=== PATIENT | male | born 1945 | race Caucasian/White ===

== ENCOUNTER → 2019-03-13 06:55 | Outpatient (CLI) | payer OTHER, SELFPAY ==
--- NOTE | 2019-03-13 | DI.CT.S_ITS ---
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 Additional oblique axial 3.0 mm sections acquired through the pharynx. 3 mm thick coronal and sagittal reformats were generated. For radiation dose reduction, the following was used: automated exposure control. COMPARISON: Correlation is made with examinations performed at [facility] 08/04/18 (CT and MRI), and PET/CT 06/01/18, and [place] CT 06/03/18. FINDINGS: Image quality: Limited by streak artifact from dental amalgam. Lymph nodes: No enlarged lymph nodes seen throughout the neck. Vessels: Visualized vasculature appears patent. Neck spaces: Postoperative change of the left submandibular region can be seen, with numerous clips and fat packing. There is asymmetry seen involving the retromolar trigones, with abnormal enhancements loss soft tissue seen on the left side, which is consistent with continued perineural invasion. Abnormal fullness is seen involving the left Meckel's cave compared to the right, although this is subtle. The oropharynx, nasopharynx, and pharynx demonstrate no mucosal lesions. The vocal cords, false vocal cords, pyriform sinuses, epiglottis, vallecula, and tongue base all appear normal. Glands: The parotid and submandibular glands appear normal. Thyroid gland again demonstrates a left-sided low density lesion that measures 2.5 cm. Miscellaneous: Visualized brain and orbits appear normal. Lung apices appear clear. Superficial soft tissues appear normal. Bones: No suspicious bony lesions. Visualized sinuses and mastoids appear unremarkable. Relatively prominent lower cervical spine degenerative changes are seen. IMPRESSION: Postoperative change of the left neck seen. There is again seen perineural spread seen on the left, with abnormal fullness and enhancement within the left retromolar trigone. There is also asymmetric facet enhancement seen within the left Meckel's cave compared to the right, although this is more subtle. This patient's perineural invasion has been better seen on prior scans by MRI than by CT. If clinically appropriate, please consider a followup MRI for better delineation. Incidental note is made of: Lower cervical spine degenerative change 2.5 cm thyroid lesion, as previously described. Dictated by: Zeb Rosado M.D. on 03/13/2019 at 8:30 Transcribed by: PAWAN on 03/13/2019 at 9:02 Approved by: Zeb Rsoado M.D. on 03/13/2019 at 9:19
[2019-03-13 07:30] LABS: Alanine Aminotransferase 36 IU/L (<50); Albumin 4.3 g/dL (3.5-5.0); Albumin Globulin Ratio 1.4 (1.0-2.8); Alkaline Phosphatase 69 U/L (38-126); Aspartate Aminotransferase 34 IU/L (17-59); Bilirubin Total 0.9 mg/dL (0.2-1.3); Blood Urea Nitrogen 28 mg/dL (9-20); Calcium 9.8 mg/dL (8.4-10.2); Carbon Dioxide 31 mmol/L (22-32); Chloride 101 mmol/L (98-107); Estimated Glomerular Filt Rate > 60.0 mL/min (>60); Glucose 104 mg/dL (80-110); HEMOLYSIS 31 (0-50); Potassium 5.1 mmol/L (3.4-5.1); Sodium 139 mmol/L (137-145); Total Protein 7.3 g/dL (6.3-8.2)
== END ==
PROVIDERS: Visit Provider Radiology Radiation Oncology
DX: C14.8 Malignant neoplasm of overlapping sites of lip, oral cavity and pharynx (principal); M47.812 Spondylosis without myelopathy or radiculopathy, cervical region; E07.9 Disorder of thyroid, unspecified
CPT/HCPCS: 36415; 70491; 80053; Q9967

== ENCOUNTER → 2020-04-05 09:52 | Outpatient (CLI) | payer MEDICARE, SELFPAY ==
--- NOTE | 2020-04-05 11:12 | DI.CT.S_ITS ---
PROCEDURE: CT SOFT TISSUE NECK W CON INDICATIONS: Malignant neoplasm of mouth, unspecified TECHNIQUE: After the administration of intravenous contrast, 3.0 mm axial sections acquired from the sella to the aortic arch. Additional oblique axial 3.0 mm sections acquired through the pharynx. 3 mm thick coronal and sagittal reformats were generated. For radiation dose reduction, the following was used: automated exposure control. In this patient, 1 mm direct axial images were also reformatted. COMPARISON: [facility], CT, CT SOFT TISSUE NECK WITH CONTRAST, 08/04/2018, 13:57. Outside Facility, RG, CT THERAPY PLAN RAD ONC BODY, 12/06/2018, 8:53. Outside Film, CT, CT SOFT TISSUE NECK WITH CONTRAST, 06/07/2018, 13:20. [facility], MR, MR NECK WITH/WITHOUT CONTRAST, 08/04/2018, 14:18. Outside Facility, RG, MRI HEAD W/WO CONTRAST, 10/13/2018, 17:20. [facility], CT, CT SOFT TISSUE NECK W CON, 03/13/2019, 8:46. FINDINGS: Image quality: There is artifact associated with the metallic hardware. Lymph nodes: No enlarged lymph nodes seen throughout the neck. Vessels: Visualized vasculature appears patent. Neck spaces: Postoperative changes are seen involving the left perimandibular region and the left submandibular region. Fat packing can be seen. There is again seen obscuration of the fat within the left retromolar trigone, with soft tissue fullness. However, the abnormal soft tissue fullness appears slightly improved compared to the prior examination. Scrutiny is given to the Meckel's caves. On the current study, no definite asymmetry or abnormal enhancement can be seen. Glands: The left submandibular gland has been resected. The right submandibular gland is prominent, without a focal abnormality. The right parotid gland is unremarkable. The left parotid gland demonstrates fatty atrophy. Thyroid gland again demonstrates a nodule on the left measuring nearly 3 cm. Miscellaneous: Visualized brain and orbits appear normal. Lung apices appear clear. Superficial soft tissues appear normal. Bones: No suspicious bony lesions. Visualized sinuses and mastoids appear unremarkable. At least moderate cervical spine degenerative changes are seen. IMPRESSION: This postoperative study is similar to the prior, with abnormal soft tissue fullness seen within the left retromolar trigone. However, the soft tissue fullness appears slightly less prominent on the current study than on the prior CT. No definite abnormality is now seen of the Meckel's caves. Stable left thyroid nodule. Dictated by: Zeb Rosado M.D. on 04/05/2020 at 12:30 Approved by: Zeb Rosado M.D. on 04/05/2020 at 12:42
== END ==
PROVIDERS: PCP Family Medicine; Referring Provider Otolaryngology Plastic Surgery within the Head & Neck; Visit Provider Otolaryngology Plastic Surgery within the Head & Neck
DX: C06.9 Malignant neoplasm of mouth, unspecified (principal); E04.1 Nontoxic single thyroid nodule
CPT/HCPCS: 70491; Q9967

== ENCOUNTER → 2020-07-03 10:35 | Outpatient (CLI) | payer MEDICARE, SELFPAY ==
[2020-07-03 11:56] LABS: Alanine Aminotransferase 34 IU/L (<50); Albumin Globulin Ratio 1.3 (1.0-2.8); Alkaline Phosphatase 80 U/L (38-126); Aspartate Aminotransferase 31 IU/L (17-59); BUN Creatinine Ratio 27.2 (6-22); Bilirubin Total 0.3 mg/dL (0.2-1.3); Blood Urea Nitrogen 25 mg/dL (9-20); Calcium 9.6 mg/dL (8.4-10.2); Carbon Dioxide 28 mmol/L (22-32); Chloride 105 mmol/L (98-107); Estimated Glomerular Filt Rate > 60.0 mL/min (>60); Globulin 3.1 g/dL (1.7-4.1); Glucose 112 mg/dL (80-110); HEMOLYSIS 18 (0-50); Potassium 4.2 mmol/L (3.4-5.1); Sodium 140 mmol/L (137-145); Total Protein 7.1 g/dL (6.3-8.2)
== END ==
PROVIDERS: PCP Family Medicine; Referring Provider Otolaryngology Plastic Surgery within the Head & Neck; Visit Provider Otolaryngology Plastic Surgery within the Head & Neck
DX: C06.9 Malignant neoplasm of mouth, unspecified (principal)
CPT/HCPCS: 36415; 80053

== ENCOUNTER → 2020-07-04 11:56 | Outpatient (CLI) | payer MEDICARE, SELFPAY ==
--- NOTE | 2020-07-04 12:26 | DI.CT.S_ITS ---
PROCEDURE: CT SOFT TISSUE NECK W CON INDICATIONS: Inflammatory conditions of jaws TECHNIQUE: After the administration of intravenous contrast, 3.0 mm axial sections acquired from the sella to the aortic arch. Additional oblique axial 3.0 mm sections acquired through the pharynx. 3 mm thick coronal and sagittal reformats were generated. For radiation dose reduction, the following was used: automated exposure control. COMPARISON: [facility], CT, CT SOFT TISSUE NECK W CON, 04/05/2020, 11:14. CT dated 03/13/19, 12/06/18, 11/07/18, FINDINGS: Image quality: Excellent. Lymph nodes: No enlarged lymph nodes seen throughout the neck. Vessels: Visualized vasculature appears patent. Neck spaces: Overall, grossly stable appearance of postoperative changes involving the left perimandibular and submandibular region. Numerous surgical clips are again seen. There is unchanged appearance of associated fat packing. No discrete mass identified. Glands: The parotid and submandibular glands appear normal. Heterogeneous left thyroid nodule would be better assessed with dedicated ultrasound as clinically warranted. Miscellaneous: Visualized brain and orbits appear normal. Lung apices appear clear. Superficial soft tissues appear normal. Bones: No suspicious bony lesions. Multilevel cervical spondylosis and facet arthropathy. Straightening of the normal lordotic curvature. Visualized sinuses and mastoids appear unremarkable. IMPRESSION: Overall, grossly stable appearance since 04/05/20. No discrete or specific evidence of progressive metastatic disease. Dictated by: Ananda Davey M.D. on 07/04/2020 at 13:57 Approved by: Ananda Davey M.D. on 07/04/2020 at 14:03
== END ==
PROVIDERS: PCP Family Medicine; Referring Provider Otolaryngology Plastic Surgery within the Head & Neck; Visit Provider Otolaryngology Plastic Surgery within the Head & Neck
DX: M27.2 Inflammatory conditions of jaws (principal); G89.3 Neoplasm related pain (acute) (chronic)
CPT/HCPCS: 70491; Q9967

== ENCOUNTER → 2020-07-09 13:30 | Outpatient (CLI) | payer MEDICARE, SELFPAY ==
--- NOTE | 2020-07-09 13:32 | DI.CT.S_ITS ---
PROCEDURE: CT ANGIO ABD AORTA RUNOFF INDICATIONS: Inflammatory conditions of jaws TECHNIQUE: After the administration of intravenous contrast, 2.5 mm sections acquired from T12 to the feet, with optional delayed image acquisition from the knees to the feet. 3-dimensional maximum intensity projection (MIP) coronal and sagittal reformats, and/or 3-dimensional volume rendering reformatting was then performed. For radiation dose reduction, the following was used: automated exposure control. COMPARISON: None. FINDINGS: Image quality: Excellent. Extravascular tissues: Lung bases are not included. Heart size is not visualized. Liver is partially visualized and appears normal in size and enhancement. Gallbladder is contracted . Biliary system is non dilated. Pancreas enhances normally. Spleen is normal in size and enhancement. No adrenal nodules. Kidneys are normal in size and enhancement, without hydronephrosis. Scattered renal cortical cysts are present, and there is an adjacent posterior retroperitoneal right-sided cyst behind the IVC, measuring up to 5.1 x 3.9 cm. This measures water in internal radiodensity in likely is a neurenteric cyst. Non opacified bowel loops demonstrate normal wall thickness and enhancement. No free fluid or air. No retroperitoneal or mesenteric adenopathy. No ventral hernias. Bladder wall thickness is normal. No inguinal hernias or adenopathy. No suspicious bony lesions. No vertebral body compression fractures. Abdominal aorta: Normal in caliber, free of significant atherosclerotic soft or calcific plaque. Right lower extremity: Aortic bifurcation through the ankle region is normal without stenosis or aneurysm. Left lower extremity: Aortic bifurcation through the ankle region on the left is also normal, without stenosis or aneurysm. IMPRESSION: No significant calcific or soft plaque through the aorta and its main tributaries. The aortic bifurcation and iliac arteries extending into the common femoral arteries and below appear normal. No arterial stenosis or aneurysm is seen. Neck Incidental note is made of several renal cortical cysts bilaterally and a single ovoid presume neurenteric cyst behind the superior vena cava at the axial level of the superior mesenteric artery origin measuring up to 5.1 x 3.9 cm. Dictated by: Piyush Orourke M.D. on 07/09/2020 at 15:05 Approved by: Piyush Orourke M.D. on 07/09/2020 at 15:21
== END ==
PROVIDERS: PCP Family Medicine; Referring Provider Otolaryngology Plastic Surgery within the Head & Neck; Visit Provider Otolaryngology Plastic Surgery within the Head & Neck
DX: M27.2 Inflammatory conditions of jaws (principal); N28.1 Cyst of kidney, acquired
CPT/HCPCS: 75635

== ENCOUNTER → 2020-10-14 14:01 | Outpatient (CLI) | payer MEDICARE, SELFPAY ==
[2020-10-14 16:29] LABS: BUN Creatinine Ratio 32.9 (6-22); Blood Urea Nitrogen 28 mg/dL (9-20); Calcium 9.2 mg/dL (8.4-10.2); Carbon Dioxide 25 mmol/L (22-32); Chloride 103 mmol/L (98-107); Estimated Glomerular Filt Rate > 60.0 mL/min (>60); Glucose 125 mg/dL (80-110); HEMOLYSIS < 15 (0-50); Potassium 4.6 mmol/L (3.4-5.1); Sodium 139 mmol/L (137-145)
== END ==
PROVIDERS: PCP Family Medicine; Referring Provider Otolaryngology Plastic Surgery within the Head & Neck; Visit Provider Otolaryngology Plastic Surgery within the Head & Neck
DX: M27.2 Inflammatory conditions of jaws (principal)
CPT/HCPCS: 36415; 80048

== ENCOUNTER → 2020-10-17 10:37 | Outpatient (CLI) | payer MEDICARE, SELFPAY ==
--- NOTE | 2020-10-17 | DI.CT.S_ITS ---
PROCEDURE: CT FACIAL BONES W CON INDICATIONS: Inflammatory conditions of jaws TECHNIQUE: After the administration of intravenous contrast, 2.5 mm axial sections acquired from the mid-neck to the frontal sinuses, with coronal and sagittal reformats. For radiation dose reduction, the following was used: automated exposure control, adjustment of mA and/or kV according to patient size. COMPARISON: [facility], CT, CT SOFT TISSUE NECK W CON, 07/04/2020, 12:37. FINDINGS: Image quality: Metallic spray artifact from dental amalgam limits several images. Soft tissues: No edema, masses, or fluid collections. No enlarged lymph nodes. Prior resection of the left submandibular gland with surgical clips remains unchanged from the prior in. Denervation atrophy of the left parotid gland noted with fatty replacement, also stable. Vascular: Visualized vascular structures appear patent throughout. Bony vascular foramina and canals appear normal. Bones: Facial bones appear intact, without fractures, erosions, or destruction. Visualized portions of the skull base and auditory canals also appear normal. Sinuses: 1.8 x 0.8 cm right maxillary retention cyst noted. Ectopic right maxillary Donna cell noted. No obstruction of the OMU. IMPRESSION: 1. Prior left submandibular gland resection, surgical clips and denervation atrophy of the left parotid gland, stable from the prior 2. Incidental right maxillary sinus retention cyst Dictated by: Linus Sapp M.D. on 10/17/2020 at 12:53 Approved by: Linus Sapp M.D. on 10/17/2020 at 13:43
== END ==
PROVIDERS: PCP Family Medicine; Referring Provider Otolaryngology Plastic Surgery within the Head & Neck; Visit Provider Otolaryngology Plastic Surgery within the Head & Neck
DX: J34.1 Cyst and mucocele of nose and nasal sinus (principal); M27.2 Inflammatory conditions of jaws
CPT/HCPCS: 70487; Q9967

== ENCOUNTER → 2020-12-16 09:00 | Outpatient (CLI) | payer MEDICARE, SELFPAY ==
[2020-12-16 11:13] LABS: COVID-19 CEPHEID PCR (VTM/NP) Negative (Negative)
== END ==
PROVIDERS: PCP Family Medicine; Visit Provider Nurse Practitioner
DX: Z01.812 Encounter for preprocedural laboratory examination (principal); Z20.822 Contact with and (suspected) exposure to COVID-19
CPT/HCPCS: C9803; U0003

== ENCOUNTER → 2024-03-02 10:28 | Outpatient (CLI) | payer MEDICARE, SELFPAY | LOC: WC 10:30 | PROVIDERS: PCP Family Medicine; Visit Provider Surgery | DX: L59.8 Other specified disorders of the skin and subcutaneous tissue related to radiation (principal); M27.2 Inflammatory conditions of jaws | CPT/HCPCS: 99203; 99212 ==

== ENCOUNTER → 2024-03-07 13:33 | Outpatient (CLI) | payer MEDICARE, SELFPAY ==
--- NOTE | 2024-03-07 13:35 | DI.RAD.S_ITS ---
PROCEDURE: XR CHEST 2V INDICATIONS: Eval for Hyperbaric Oxygen Treatment TECHNIQUE: 2 views of the chest were acquired. COMPARISON: None. FINDINGS: Heart, mediastinum and pulmonary vasculature: Heart is borderline enlarged . Tortuous thoracic aorta appreciated- The mediastinum is , otherwise, unremarkable. Pulmonary vascular is normal. Lungs: Clear Pleural spaces: Normal-no effusions or pneumothorax. Bones and soft tissues: Normal IMPRESSION: Borderline cardiomegaly. No acute disease Dictated by: Breezy Corona M.D. on 03/08/2024 at 16:14 Approved by: Breezy Corona M.D. on 03/08/2024 at 16:15
== END ==
PROVIDERS: PCP Family Medicine; Referring Provider Surgery; Visit Provider Surgery
DX: Z01.818 Encounter for other preprocedural examination (principal); M87.30 Other secondary osteonecrosis, unspecified bone
CPT/HCPCS: 71046

== ENCOUNTER → 2024-03-13 12:59 | Outpatient (CLI) | payer MEDICARE, SELFPAY | LOC: WC 13:01 | PROVIDERS: PCP Family Medicine; Visit Provider Surgery | DX: L59.8 Other specified disorders of the skin and subcutaneous tissue related to radiation (principal); M27.2 Inflammatory conditions of jaws | CPT/HCPCS: 99183; G0277 ==

== ENCOUNTER → 2024-03-14 15:24 | Outpatient (CLI) | payer MEDICARE, SELFPAY | LOC: WC 15:25 | PROVIDERS: PCP Family Medicine; Visit Provider Surgery | DX: L59.8 Other specified disorders of the skin and subcutaneous tissue related to radiation (principal); M27.2 Inflammatory conditions of jaws | CPT/HCPCS: 99183; G0277 ==

== ENCOUNTER → 2024-03-15 13:07 | Outpatient (CLI) | payer MEDICARE, SELFPAY | PROVIDERS: PCP Family Medicine; Visit Provider Surgery | DX: L59.8 Other specified disorders of the skin and subcutaneous tissue related to radiation (principal); M27.2 Inflammatory conditions of jaws | CPT/HCPCS: 99183; G0277 ==

== ENCOUNTER 2024-03-16 02:16 | Emergency (ER) | payer MEDICARE, SELFPAY ==
[2024-03-16 02:19] VITALS: PULSE 60; RESP 16; TEMP 36.9; O2SAT 97; BMI 30.4
[2024-03-16] MEDS: LIDOCAINE 2% (GLYDO) 6 ML GEL TOP (02:31)
--- NOTE | 2024-03-16 02:33 | ED.GENADULT ---
HPI - General Adult General Chief complaint: Urogenital-Male Stated complaint: BLADDER Time Seen by Provider: 03/16/24 02:19 Source: patient Mode of arrival: Ambulatory History of Present Illness HPI narrative: Patient is a 79-year-old male who is here for evaluation of lower abdominal pain and urinary retention. Patient states that over the past several days he was noticed increasing problems with urinating. He was on a medication for his prostate. He has already talked with his primary doctor. Referral has been placed for Urology. He was scheduled to see Urology in approximately 2 weeks from now. He states that over the past 24 hours he has had increasing problems with urinating and has not urinated affectively for the past 24 hours. Is now unable to urinate at all. Prior to my initial evaluation a bladder scan had been performed and a Enriquez catheter has been placed with greater than 800 cc of urine. He reports improvement of his presenting symptoms. Related Data Home Medications Medication Instructions Recorded Confirmed ASPIRIN (Aspirin Low Dose) 81 mg PO ##0 05/02/08 CALCIUM CARBONATE/VITAMIN D3 0 PO * UK DOSE/FREQUENCY ##0 05/02/08 (Oyster Shell Calcium-Vit D Tab) IBUPROFEN (Motrin / Advil) 400 mg PO PRN ##0 05/02/08 MULTIVITAMIN/MINERALS (Thera M 0 tab PO * UK DOSE/FREQUENCY ##0 05/02/08 Plus Tablet) VITAMIN C - 0 PO * UK DOSE/FREQUENCY ##0 05/02/08 (VITAMIN C) metoprolol succinate 50 mg 50 mg PO DAILY 03/16/24 03/16/24 tablet,extended release 24 hr Allergies Allergy/AdvReac Type Severity Reaction Status Date / Time No Known Drug Allergies Allergy Verified 03/16/24 02:18 Review of Systems Review of Systems Narrative: See HPI Patient History Social History Smoking Status: Former smoker Smoking Status: Former smoker Substance Use Type: does not use Exam Initial Vital Signs Initial Vital Signs: Vital Signs Temperature 98.4 F 03/16/24 02:19 Pulse Rate 60 03/16/24 02:19 Respiratory Rate 16 03/16/24 02:19 Pulse Oximetry 97 03/16/24 02:19 Oxygen Delivery Method Room Air 03/16/24 02:19 Const General: cooperative, comfortable and No ill appearing GI Inspection: normal to inspection Palpation: soft, No guarding and No tender Other: Enriquez catheter placed Skin General: no rashes or lesions noted Neuro General: patient alert, patient awake and moves all extremities Course Orders Ordered: ED Orders 03/16/24 03:07 Urine Culture Stat Urine Microscopic Stat Discontinued Medications Lidocaine HCl (Lidocaine 2% (Glydo) 6 Ml Gel) 6 ml TOP NOW ONE Stop: 03/16/24 02:28 Last Admin: 03/16/24 02:31 Dose: 6 ml Documented By: Vital Signs Vital signs: Vital Signs - 8 hr 03/16/24 02:19 Temperature 98.4 F Pulse Rate 60 Respiratory Rate 16 Pulse Oximetry 97 Oxygen Delivery Method Room Air Medical Decision Making Lab Data Labs: Urine Dip Bedside Urine Glucose Negative Bedside Urine Bilirubin - Negative Bedside Urine Ketone - Negative Urine Specific [place] 1.025 Bedside Urine Occult Blood +++ Bedside Urine pH 6.0 Bedside Urine Protein - Negative Bedside Urine Urobilinogen +/- 1mg Bedside Urine Nitrite - Negative Bedside Urine Leukocytes - Negative Esterase Point of care testing: Urine Dip Bedside Urine Glucose Negative Bedside Urine Bilirubin - Negative Bedside Urine Ketone - Negative Urine Specific [place] 1.025 Bedside Urine Occult Blood +++ Bedside Urine pH 6.0 Bedside Urine Protein - Negative Bedside Urine Urobilinogen +/- 1mg Bedside Urine Nitrite - Negative Bedside Urine Leukocytes - Negative Esterase MDM Narrative Medical decision making narrative: Urinalysis is not consistent with a urinary tract infection. He was obviously retaining urine and a Enriquez catheter has been placed. He was already on an alpha-ziggy. Will discharge patient home with instructions to contact his urologist for a follow-up. He was given care instructions and return precautions. He expressed understanding and agreement plan. Discharge Plan Departure Patient Disposition: Home Clinical Impression: Acute retention of urine Instructions: How to Care for Your Enriquez Catheter -- Male, DI for Urinary Retention in Men Activity Restrictions/Additional Instructions: Continue to take all of your medications as directed. When the office is open later today recommend that you contact the urology office for a follow-up. Return to the emergency department for new or worsening symptoms Prescriptions: No Action ASPIRIN (Aspirin Low Dose) 81 mg PO Qty: 0 CALCIUM CARBONATE/VITAMIN D3 (Oyster Shell Calcium-Vit D Tab) 0 PO * UK DOSE/FREQUENCY Qty: 0 IBUPROFEN (Motrin / Advil) 400 mg PO PRN Qty: 0 MULTIVITAMIN/MINERALS (Thera M Plus Tablet) 0 tab PO * DOSE/FREQUENCY Qty: 0 VITAMIN C - (VITAMIN C) 0 PO * DOSE/FREQUENCY Qty: 0 metoprolol succinate 50 mg tablet extended release 24 hr 50 mg PO DAILY Patient Comments: TAKE ONE TABLET BY MOUTH ONE TIME DAILY Referrals: Shaun Martinez MD [Primary Care Provider] - Stand Alone Forms: Patient Portal/API/Survey
[2024-03-16 03:25] LABS: Bacteria Urine None Seen; Culture Indicated Urine Cult Not Indicated; RBC Urine 10-30/HPF (0-5/HPF); Squamous Epithelial Cell Urine None Seen (0-5/HPF); Urine Volume 10mL (spun); WBC Urine None Seen (0-5/HPF)
[2024-03-16 03:29] VITALS: BP 156/78; PULSE 74; RESP 16; O2SAT 95
== END 2024-03-16 03:30 | disposition home or self-care (01) ==
PROVIDERS: Emergency Provider Emergency Medicine; PCP Family Medicine
DX: R33.8 Other retention of urine (principal); R10.30 Lower abdominal pain, unspecified; T70.0XXA Otitic barotrauma, initial encounter
CPT/HCPCS: 51798; 81003; 81015; 87086; 99211; 99283

== ENCOUNTER → 2024-03-16 13:22 | Outpatient (CLI) | payer MEDICARE, SELFPAY | PROVIDERS: PCP Family Medicine; Visit Provider Surgery | DX: T70.0XXA Otitic barotrauma, initial encounter (principal) | CPT/HCPCS: 99211; 99213 ==

== ENCOUNTER → 2024-03-22 12:58 | Outpatient (CLI) | payer MEDICARE, SELFPAY | PROVIDERS: PCP Family Medicine; Visit Provider Surgery | DX: L59.8 Other specified disorders of the skin and subcutaneous tissue related to radiation (principal); M27.2 Inflammatory conditions of jaws | CPT/HCPCS: 99183; G0277 ==

== ENCOUNTER → 2024-03-23 08:49 | Outpatient (CLI) | payer MEDICARE, SELFPAY | PROVIDERS: PCP Family Medicine; Visit Provider Surgery | DX: L59.8 Other specified disorders of the skin and subcutaneous tissue related to radiation (principal); M27.2 Inflammatory conditions of jaws | CPT/HCPCS: 99183; G0277 ==

== ENCOUNTER → 2024-03-24 08:43 | Outpatient (CLI) | payer MEDICARE, SELFPAY | PROVIDERS: PCP Family Medicine; Visit Provider Physician Assistant | DX: L59.8 Other specified disorders of the skin and subcutaneous tissue related to radiation (principal); M27.2 Inflammatory conditions of jaws | CPT/HCPCS: 99183; G0277 ==

== ENCOUNTER → 2024-03-27 08:33 | Outpatient (CLI) | payer MEDICARE, SELFPAY | PROVIDERS: PCP Family Medicine; Visit Provider Surgery | DX: L59.8 Other specified disorders of the skin and subcutaneous tissue related to radiation (principal); M27.2 Inflammatory conditions of jaws | CPT/HCPCS: 99183; G0277 ==

== ENCOUNTER → 2024-03-28 10:33 | Outpatient (CLI) | payer MEDICARE, SELFPAY | PROVIDERS: PCP Family Medicine; Referring Provider Family Medicine; Visit Provider Surgery | DX: L59.8 Other specified disorders of the skin and subcutaneous tissue related to radiation (principal); M27.2 Inflammatory conditions of jaws | CPT/HCPCS: 99183; G0277 ==

== ENCOUNTER → 2024-03-29 10:49 | Outpatient (CLI) | payer MEDICARE, SELFPAY | PROVIDERS: PCP Family Medicine; Referring Provider Family Medicine; Visit Provider Surgery | DX: L59.8 Other specified disorders of the skin and subcutaneous tissue related to radiation (principal); M27.2 Inflammatory conditions of jaws | CPT/HCPCS: 99183; G0277 ==

== ENCOUNTER → 2024-03-30 08:26 | Outpatient (CLI) | payer MEDICARE, SELFPAY | PROVIDERS: PCP Family Medicine; Visit Provider Surgery | DX: L59.8 Other specified disorders of the skin and subcutaneous tissue related to radiation (principal); M27.2 Inflammatory conditions of jaws | CPT/HCPCS: 99183; G0277 ==

== ENCOUNTER → 2024-03-31 08:23 | Outpatient (CLI) | payer MEDICARE, SELFPAY | LOC: WC 08:24 | PROVIDERS: PCP Family Medicine; Visit Provider Physician Assistant | DX: L59.8 Other specified disorders of the skin and subcutaneous tissue related to radiation (principal); M27.2 Inflammatory conditions of jaws | CPT/HCPCS: 99183; G0277 ==

== ENCOUNTER → 2024-04-03 13:19 | Outpatient (CLI) | payer MEDICARE, SELFPAY | PROVIDERS: PCP Family Medicine; Visit Provider Surgery | DX: L59.8 Other specified disorders of the skin and subcutaneous tissue related to radiation (principal); M27.2 Inflammatory conditions of jaws | CPT/HCPCS: 99183; 99212; 99213; G0277 ==

== ENCOUNTER → 2024-04-04 08:36 | Outpatient (CLI) | payer MEDICARE, SELFPAY | PROVIDERS: PCP Family Medicine; Visit Provider Surgery | DX: L59.8 Other specified disorders of the skin and subcutaneous tissue related to radiation (principal); M27.2 Inflammatory conditions of jaws | CPT/HCPCS: 99183; G0277 ==

== ENCOUNTER → 2024-04-05 08:00 | Outpatient (CLI) | payer MEDICARE, SELFPAY | PROVIDERS: PCP Family Medicine; Visit Provider Physician Assistant | DX: L59.8 Other specified disorders of the skin and subcutaneous tissue related to radiation (principal); M27.2 Inflammatory conditions of jaws | CPT/HCPCS: 99183; G0277 ==

== ENCOUNTER → 2024-04-10 08:38 | Outpatient (CLI) | payer MEDICARE, SELFPAY | PROVIDERS: PCP Family Medicine; Visit Provider Surgery | DX: L59.8 Other specified disorders of the skin and subcutaneous tissue related to radiation (principal); M27.2 Inflammatory conditions of jaws | CPT/HCPCS: 99183; G0277 ==

== ENCOUNTER → 2024-04-11 08:13 | Outpatient (CLI) | payer MEDICARE, SELFPAY | PROVIDERS: PCP Family Medicine; Visit Provider Surgery | DX: L59.8 Other specified disorders of the skin and subcutaneous tissue related to radiation (principal); M27.2 Inflammatory conditions of jaws | CPT/HCPCS: 99183; G0277 ==

== ENCOUNTER → 2024-04-12 08:48 | Outpatient (CLI) | payer MEDICARE, SELFPAY | PROVIDERS: PCP Family Medicine; Visit Provider Surgery | DX: L59.8 Other specified disorders of the skin and subcutaneous tissue related to radiation (principal); M27.2 Inflammatory conditions of jaws | CPT/HCPCS: 99183; G0277 ==

== ENCOUNTER → 2024-04-13 08:29 | Outpatient (CLI) | payer MEDICARE, SELFPAY | PROVIDERS: PCP Family Medicine; Visit Provider Surgery | DX: L59.8 Other specified disorders of the skin and subcutaneous tissue related to radiation (principal); M27.2 Inflammatory conditions of jaws | CPT/HCPCS: 99183; G0277 ==

== ENCOUNTER → 2024-04-14 09:09 | Outpatient (CLI) | payer MEDICARE, SELFPAY | PROVIDERS: PCP Family Medicine; Visit Provider Physician Assistant | DX: L59.8 Other specified disorders of the skin and subcutaneous tissue related to radiation (principal); M27.2 Inflammatory conditions of jaws | CPT/HCPCS: 99183; G0277 ==

== ENCOUNTER → 2024-04-18 09:24 | Outpatient (CLI) | payer MEDICARE, SELFPAY | PROVIDERS: PCP Family Medicine; Visit Provider Surgery | DX: L59.8 Other specified disorders of the skin and subcutaneous tissue related to radiation (principal); M27.2 Inflammatory conditions of jaws | CPT/HCPCS: 99183; G0277 ==

== ENCOUNTER → 2024-04-19 08:52 | Outpatient (CLI) | payer MEDICARE, SELFPAY | PROVIDERS: PCP Family Medicine; Visit Provider Surgery | DX: L59.8 Other specified disorders of the skin and subcutaneous tissue related to radiation (principal); M27.2 Inflammatory conditions of jaws | CPT/HCPCS: 99183; G0277 ==

== ENCOUNTER → 2024-04-20 09:14 | Outpatient (CLI) | payer MEDICARE, SELFPAY | LOC: WC 09:14 | PROVIDERS: PCP Family Medicine; Visit Provider Surgery | DX: L59.8 Other specified disorders of the skin and subcutaneous tissue related to radiation (principal); M27.2 Inflammatory conditions of jaws | CPT/HCPCS: 99183; G0277 ==

== ENCOUNTER → 2024-04-21 08:44 | Outpatient (CLI) | payer MEDICARE, SELFPAY | PROVIDERS: PCP Family Medicine; Visit Provider Physician Assistant | DX: L59.8 Other specified disorders of the skin and subcutaneous tissue related to radiation (principal); M27.2 Inflammatory conditions of jaws | CPT/HCPCS: 99183; G0277 ==

== ENCOUNTER → 2024-04-24 08:40 | Outpatient (CLI) | payer MEDICARE, SELFPAY | LOC: WC 08:41 | PROVIDERS: PCP Family Medicine; Visit Provider Surgery | DX: L59.8 Other specified disorders of the skin and subcutaneous tissue related to radiation (principal); M27.2 Inflammatory conditions of jaws | CPT/HCPCS: 99211; 99212 ==

== ENCOUNTER 2024-04-29 09:16 | Emergency (ER) | payer MEDICARE, SELFPAY ==
[2024-04-29 09:17] VITALS: BP 191/89; PULSE 72; RESP 14; TEMP 36.7; O2SAT 96; BMI 30.4
[2024-04-29 09:21] VITALS: PULSE 78; O2SAT 97
[2024-04-29 09:23] VITALS: BP 191/89; PULSE 74
--- NOTE | 2024-04-29 09:54 | ED_ITS ---
HPI - Male Genitourinary General Chief complaint: Urogenital-Male Stated complaint: Having problems with his Urine cath Time Seen by Provider: 04/29/24 09:32 Source: patient Mode of arrival: Ambulatory History of Present Illness HPI Narrative: 79-year-old male with existing Enriquez catheter for the last couple of months, awaiting follow up appointment 05/07/24 with [facility] in [place] Dr. [place], has sensation of urinary urgency today. No fevers or chills. No back pain. No nausea or vomiting. No loose stools or diarrhea. Related Data Home Medications Medication Instructions Recorded Confirmed ASPIRIN (Aspirin Low Dose) 81 mg PO ##0 05/02/08 CALCIUM CARBONATE/VITAMIN D3 0 PO * UK DOSE/FREQUENCY ##0 05/02/08 (Oyster Shell Calcium-Vit D Tab) IBUPROFEN (Motrin / Advil) 400 mg PO PRN ##0 05/02/08 MULTIVITAMIN/MINERALS (Thera M 0 tab PO * UK DOSE/FREQUENCY ##0 05/02/08 Plus Tablet) VITAMIN C - 0 PO * UK DOSE/FREQUENCY ##0 05/02/08 (VITAMIN C) metoprolol succinate 50 mg 50 mg PO DAILY 03/16/24 03/16/24 tablet,extended release 24 hr Allergies Allergy/AdvReac Type Severity Reaction Status Date / Time No Known Drug Allergies Allergy Verified 04/29/24 09:24 Patient History Social History Smoking Status: Former smoker Smoking Status: Former smoker Exam Narrative Exam Narrative: GENERAL: Well-developed patient, in mild distress. HEAD: Atraumatic. Normocephalic. EYES: Pupils equal round and reactive. Extraocular motions intact. No scleral icterus. No injection or drainage. ENT: Nose without bleeding, purulent drainage. Throat without erythema, tonsillar hypertrophy or exudate. Airway patent. NECK: Trachea midline. Non tender CARDIOVASCULAR: Regular rate and rhythm without murmurs, gallops, or rubs. RESPIRATORY: Clear to auscultation. Breath sounds equal bilaterally. No wheezes, rales, or rhonchi. GASTROINTESTINAL: Abdomen soft, non-tender, nondistended. Genitourinary: Enriquez catheter in place, clear fluid in tubing EXTREMITIES: No edema or joint tenderness. BACK: Nontender without deformity or crepitance. No flank tenderness. NEURO: AOx3. Motor functions grossly nonfocal SKIN: No rash or erythema of visible areas Initial Vital Signs Initial Vital Signs: Vital Signs Temperature 98.0 F 04/29/24 09:17 Pulse Rate 72 04/29/24 09:17 Respiratory Rate 14 04/29/24 09:17 Blood Pressure 191/89 H 04/29/24 09:17 Pulse Oximetry 96 04/29/24 09:17 Oxygen Delivery Method Room Air 04/29/24 09:17 Course Orders Ordered: Discontinued Medications Phenazopyridine HCl (Phenazopyridine 100 Mg Tablet) 200 mg PO NOW ONE Stop: 04/29/24 10:53 Last Admin: 04/29/24 10:58 Dose: 200 mg Documented By: CTS Vital Signs Vital signs: Vital Signs - 8 hr 04/29/24 09:17 Temperature 98.0 F Pulse Rate 72 Respiratory Rate 14 Blood Pressure 191/89 H Pulse Oximetry 96 Oxygen Delivery Method Room Air MDM - Male Genitourinary Lab Data Attestation: I reviewed the patient's lab results. Lab results narrative: Urinalysis unremarkable Labs: Lab Results 04/29/24 Range/Units 10:00 Urine Color Yellow Urine Appearance Clear Urine pH 6.0 (4.5-8.0) Ur Specific [place] <=1.005 (1.000-1.035) Urine Protein Negative (Negative) Urine Glucose (UA) Negative (Negative) g/dL Urine Ketones Negative (NEGATIVE) Urine Occult Blood 2+ H (Negative) Urine Nitrate Negative (Negative) Urine Bilirubin Negative (NEGATIVE) Urine Urobilinogen 0.2 (0.2) E.U./dL Ur Leukocyte Esterase Negative (NEGATIVE) Urine RBC 0-1/hpf D (0-5/HPF) Urine WBC None seen (0-5/HPF) Ur Squamous Epith Cells None seen (0-5/HPF) Urine Bacteria None seen (None) Ur Culture Indicated? Cult not indicated Vol Urine Centrifuged 10ml (spun) MDM Narrative Medical decision making narrative: 79-year-old male with urinary urgency, indwelling Enriquez catheter for the last 2 months awaiting urology follow up in [place] at the end of this month. Afebrile, sirs screen negative. Clear fluid in catheter tubing. Bladder scan done at triage showed volume of 34 mL only, bladder seems well decompressed. We will send urinalysis to evaluate for possible cystitis. Patient is agreeable Urinalysis unremarkable. Offered oral Pyridium, declined. Discharged home, follow up advised with his urologist in [place]. Return precautions discussed Discharge Plan Departure Patient Disposition: Home Clinical Impression: Urinary urgency, Chronic indwelling Enriquez catheter Activity Restrictions/Additional Instructions: Chronic indwelling Enriquez catheter for the last couple of months, followed by urology and [place]. Sensation of urinary urgency today. Bladder scan showed a normal volume in the bladder, bladder seems to be well decompressed by the Enriquez catheter system. A new bag was placed for collection. Urinalysis today did not show obvious infection. Often times these catheters or changed at 1 month intervals, consider change of your catheter next week if it has been a month by that date. Take Tylenol and or Motrin for discomfort. Follow up with your urologist in [place], call his office Wednesday if still having symptoms. Return earlier to this/nearest emergency department for any change worsening symptoms or any concerns prior Prescriptions: No Action ASPIRIN (Aspirin Low Dose) 81 mg PO Qty: 0 CALCIUM CARBONATE/VITAMIN D3 (Oyster Shell Calcium-Vit D Tab) 0 PO * UK DOSE/FREQUENCY Qty: 0 IBUPROFEN (Motrin / Advil) 400 mg PO PRN Qty: 0 MULTIVITAMIN/MINERALS (Thera M Plus Tablet) 0 tab PO * UK DOSE/FREQUENCY Qty: 0 VITAMIN C - (VITAMIN C) 0 PO * UK DOSE/FREQUENCY Qty: 0 metoprolol succinate 50 mg tablet extended release 24 hr 50 mg PO DAILY Patient Comments: TAKE ONE TABLET BY MOUTH ONE TIME DAILY Referrals: Shaun Martinez MD [Primary Care Provider] - Stand Alone Forms: Patient Portal/API/Survey
--- NOTE | 2024-04-29 10:10 | PC.NURSE ---
Leg bag, tubing, and dressing for catheter replaced. Urine specimen obtained from new catheter tubing/bag.
--- NOTE | 2024-04-29 10:12 | PC.NURSE ---
Patient reports he had a catheter placed 2 months ago when he had urinary retention. He saw a urologist and had a rectal exam in which they said my prostate was enlarged. Patient is scheduled for a scope and ultrasound of the prostate on 05/08. He states hic atheter was last changed 3 weeks ago. He reports yesterday he had some bladder spasms and was concerned his catheter wasn't draining properly. He reports he ahs emptiedthe catheter bag twice today, is pain free today and has no feeling of fullness in his bladder.
[2024-04-29 10:20] LABS: Appearance Urine UA CLEAR; Bilirubin Urine UA NEGATIVE (NEGATIVE); Color Urine UA YELLOW; Glucose Urine UA NEGATIVE (Negative); Ketones Urine UA NEGATIVE (NEGATIVE); Leukocyte Esterase Urine UA NEGATIVE (NEGATIVE); Nitrite Urine UA NEGATIVE (Negative); Occult Blood Urine UA 2+ (Negative); Protein Urine UA NEGATIVE (Negative); Specific Gravity Urine UA <=1.005 (1.000-1.035); Urobilinogen Urine UA 0.2 E.U./dL (0.2)
[2024-04-29 10:49] LABS: Bacteria Urine None Seen; RBC Urine 0-1/HPF (0-5/HPF); Squamous Epithelial Cell Urine None Seen (0-5/HPF); Urine Volume 10mL (spun); WBC Urine None Seen (0-5/HPF)
[2024-04-29 10:50] LABS: Culture Indicated Urine Cult Not Indicated
[2024-04-29] MEDS: PHENAZOPYRIDINE 100 MG TABLET 200 MG PO (10:58)
== END 2024-04-29 11:01 | disposition home or self-care (01) ==
PROVIDERS: Emergency Provider Emergency Medicine; PCP Family Medicine
DX: R39.15 Urgency of urination (principal); Z96.0 Presence of urogenital implants
CPT/HCPCS: 51798; 81001; 99283

== ENCOUNTER 2024-05-06 12:52 | Emergency (ER) | payer MEDICARE, SELFPAY ==
[2024-05-06 13:20] VITALS: BP 168/81; PULSE 89; RESP 17; TEMP 36.4; O2SAT 96; BMI 30.4
--- NOTE | 2024-05-06 15:14 | PC.NURSE ---
Catheter exchanged per MD orders.
--- NOTE | 2024-05-06 15:15 | PC.NURSE ---
Addendum entered by Corry Simeon R.N. 05/06/24 15:21: Bag last changed approx 1 week ago Original Note: Pt reports last time catheter was exchanged was at end of February. Pt reports the catheter had not been draining appropriately for approx 1 day. Pt reports having lower abd cramps starting this morning. Pt denies fevers. Pt expresses relief of pain when catheter is draining correctly.
--- NOTE | 2024-05-06 15:38 | ED.MALEGU ---
HPI - Male Genitourinary General Chief complaint: Urogenital-Male Stated complaint: Can't pee Time Seen by Provider: 05/06/24 14:44 Source: patient Mode of arrival: Ambulatory History of Present Illness HPI Narrative: 79-year-old male history of chronic indwelling Enriquez, comes into the ED for evaluation of Enriquez catheter issue, states that it has not been draining this morning. Does have an appointment with his urologist on 05/09/2024. Patient not complaining of any other symptoms at this time. Evaluation Enriquez catheter was not draining bladder scan did show 300 Enriquez catheter was exchanged. Related Data Home Medications Medication Instructions Recorded Confirmed ASPIRIN (Aspirin Low Dose) 81 mg PO ##0 05/02/08 CALCIUM CARBONATE/VITAMIN D3 0 PO * UK DOSE/FREQUENCY ##0 05/02/08 (Oyster Shell Calcium-Vit D Tab) IBUPROFEN (Motrin / Advil) 400 mg PO PRN ##0 05/02/08 MULTIVITAMIN/MINERALS (Thera M 0 tab PO * UK DOSE/FREQUENCY ##0 05/02/08 Plus Tablet) VITAMIN C - 0 PO * UK DOSE/FREQUENCY ##0 05/02/08 (VITAMIN C) metoprolol succinate 50 mg 50 mg PO DAILY 03/16/24 03/16/24 tablet,extended release 24 hr Allergies Allergy/AdvReac Type Severity Reaction Status Date / Time No Known Drug Allergies Allergy Verified 05/06/24 13:18 Review of Systems Review of Systems Narrative: General: Denies fever, chills, weight loss HEENT: Denies headache, eye drainage, eye irritation, head trauma, sore throat, voice change Cardiovascular: Denies any chest pain, palpitations, shortness of breath, tachycardia Respiratory: Denies any shortness of breath, cough, wheeze, stridor GI/: Enriquez catheter malfunction, Denies any abdominal pain, nausea, vomiting, diarrhea, bright red blood per rectum, melanotic stools, urinary frequency, urinary retention, dysuria, hematuria MSK: Denies any joint pain, muscle pains, swelling Skin: Denies any rashes, lesions, discoloration Neuro: Denies any headache, lightheadedness, dizziness, fainting, weakness Psych: Denies SI/HI Patient History Social History Smoking Status: Former smoker Smoking Status: Former smoker Exam Narrative Exam Narrative: General: Cooperative, comfortable, well-developed, not in acute distress HEENT: Normocephalic, atraumatic, PERRLA, normal sclera, eyelids normal, Neck: Active full range of motion, atraumatic Chest: Normal to inspection, negative crepitus, no overlying erythema ecchymosis Respiratory: Normal respiratory effort, not in acute respiratory distress, clear to auscultation bilaterally negative cough, wheeze, tachypnea, rhonchi, rales Cardiology: Regular rate rhythm negative gallop, murmur, rubs GI/: Normal to inspection, soft, nonrigid, no tenderness to palpation, Enriquez catheter in place, very little urine draining at bedside upon initial evaluation however otherwise unremarkable exam MSK: Full range of active range of motion of all 4 extremities, atraumatic Skin: No rashes lesions noted Neuro: Alert awake oriented x3, moves all 4 extremities spontaneously, cranial nerves intact, able to answer all questions appropriately follows commands appropriately Psych: Cooperative, negative suicidal or homicidal ideations Initial Vital Signs Initial Vital Signs: Vital Signs Temperature 97.5 F L 05/06/24 13:20 Pulse Rate 89 05/06/24 13:20 Respiratory Rate 17 05/06/24 13:20 Blood Pressure 168/81 H 05/06/24 13:20 Pulse Oximetry 96 05/06/24 13:20 Oxygen Delivery Method Room Air 05/06/24 13:20 Course Orders Ordered: ED Orders 05/06/24 15:38 Urinalysis and Microscopic Stat Vital Signs Vital signs: Vital Signs - 8 hr 05/06/24 13:20 Temperature 97.5 F L Pulse Rate 89 Respiratory Rate 17 Blood Pressure 168/81 H Pulse Oximetry 96 Oxygen Delivery Method Room Air MDM - Male Genitourinary Differential Diagnosis Differential diagnosis: Likely other (Enriquez catheter malfunction) MDM Narrative Medical decision making narrative: 79-year-old male history of chronic indwelling Enriquez catheter presenting for decreased drainage to his Enriquez catheter started this morning at around 6:00 a.m.. States that this has not been changed in over a month. Does have an appointment with his urologist in [place] on 05/09/2024. Patient had his Enriquez catheter exchanged here with a 17 [place]. Drained appropriate urine, we will hold off on administration of any antibiotics at this time we will send urine for culture and informed patient to follow up with his urologist continued evaluation treatment of his symptoms. Strict return precautions were given patient is safe for discharge home with outpatient follow up Discharge Plan Departure Patient Disposition: Home Clinical Impression: Malfunction of Enriquez catheter Activity Restrictions/Additional Instructions: Please follow up with your urologist scheduled appointment on 05/09/2024 Please read the discharge instructions sheet carefully and bring all papers to all doctor follow-up visits, as it may contain information that your doctor may want to see. Disease processes change and evolve, if your symptoms worsen or if you develop any new symptoms that are concerning to you please return for evaluation. Your evaluation today does not show any evidence of any life-threatening/serious illnesses requiring admission to the hospital or surgery. Please follow-up with your doctor for re-evaluation in approximately 1 day. Seek immediate medical attention for any worrisome symptoms. *If you do not have a primary care provider please contact the [facility] Resource line at [phone]. They will ask some questions about your medical history and help get you set up with a doctor in the community. Prescriptions: No Action ASPIRIN (Aspirin Low Dose) 81 mg PO Qty: 0 CALCIUM CARBONATE/VITAMIN D3 (Oyster Shell Calcium-Vit D Tab) 0 PO * UK DOSE/FREQUENCY Qty: 0 IBUPROFEN (Motrin / Advil) 400 mg PO PRN Qty: 0 MULTIVITAMIN/MINERALS (Thera M Plus Tablet) 0 tab PO * UK DOSE/FREQUENCY Qty: 0 VITAMIN C - (VITAMIN C) 0 PO * UK DOSE/FREQUENCY Qty: 0 metoprolol succinate 50 mg tablet extended release 24 hr 50 mg PO DAILY Patient Comments: TAKE ONE TABLET BY MOUTH ONE TIME DAILY Referrals: Shaun Martinez MD [Primary Care Provider] - Stand Alone Forms: Patient Portal/API/Survey
[2024-05-06 16:01] LABS: Appearance Urine UA CLOUDY; Bilirubin Urine UA NEGATIVE (NEGATIVE); Glucose Urine UA NEGATIVE (Negative); Ketones Urine UA NEGATIVE (NEGATIVE); Leukocyte Esterase Urine UA 2+ (NEGATIVE); Nitrite Urine UA POSITIVE (Negative); Occult Blood Urine UA 3+ (Negative); Protein Urine UA 1+ (Negative); Urobilinogen Urine UA 0.2 E.U./dL (0.2)
[2024-05-06 16:06] LABS: Color Urine UA Red
[2024-05-06 16:13] VITALS: BP 188/84; PULSE 70; RESP 16; TEMP 36.6; O2SAT 98
[2024-05-06 16:14] LABS: Bacteria Urine Few (2-10); Culture Indicated Urine Specimen Cultured; RBC Urine >100/HPF (0-5/HPF); Squamous Epithelial Cell Urine 0-1 /HPF (0-5/HPF); Urine Volume 10mL (spun); WBC Urine 5-10/HPF (0-5/HPF)
== END 2024-05-06 16:13 | disposition home or self-care (01) ==
PROVIDERS: Emergency Provider Student in an Organized Health Care Education/Training Program; PCP Family Medicine
DX: T83.098A Other mechanical complication of other urinary catheter, initial encounter (principal); R33.8 Other retention of urine
CPT/HCPCS: 51702; 51798; 81001; 87077; 87086; 87186; 99283

== ENCOUNTER → 2024-06-30 07:53 | Outpatient (CLI) | payer OTHER, SELFPAY ==
[2024-06-30 09:37] LABS: Prostate Specific Antigen 6.71 ng/mL (0.10-4.00)
== END ==
PROVIDERS: PCP Family Medicine; Referring Provider Urology; Visit Provider Urology
DX: Z12.5 Encounter for screening for malignant neoplasm of prostate (principal)
CPT/HCPCS: 36415; 84153

== ENCOUNTER → 2024-08-09 10:35 | Outpatient (CLI) | payer OTHER, SELFPAY ==
[2024-08-09 10:48] LABS: Appearance Urine UA SL CLOUDY; Bilirubin Urine UA NEGATIVE (NEGATIVE); Color Urine UA ORANGE; Glucose Urine UA NEGATIVE (Negative); Ketones Urine UA NEGATIVE (NEGATIVE); Leukocyte Esterase Urine UA 2+ (NEGATIVE); Nitrite Urine UA POSITIVE (Negative); Occult Blood Urine UA 3+ (Negative); Protein Urine UA 2+ (Negative); Specific Gravity Urine UA >=1.030 (1.000-1.035); Urobilinogen Urine UA 0.2 E.U./dL (0.2)
[2024-08-09 10:49] LABS: Urine Volume 10mL (spun)
[2024-08-09 10:51] LABS: RBC Urine 10-30/HPF (0-5/HPF); WBC Urine 30-100/HPF (0-5/HPF)
[2024-08-09 10:52] LABS: Bacteria Urine Many (>30); Culture Indicated Urine Specimen Cultured; Squamous Epithelial Cell Urine None Seen (0-5/HPF)
== END ==
PROVIDERS: PCP Family Medicine; Visit Provider Urology
DX: N40.1 Benign prostatic hyperplasia with lower urinary tract symptoms (principal); R33.9 Retention of urine, unspecified; Z12.5 Encounter for screening for malignant neoplasm of prostate
CPT/HCPCS: 51702; 81001; 87077; 87086; 87186; 99214

== ENCOUNTER → 2024-08-18 14:25 | Outpatient (CLI) | payer OTHER, SELFPAY | PROVIDERS: PCP Family Medicine; Visit Provider Urology | DX: R33.9 Retention of urine, unspecified (principal) | CPT/HCPCS: 87077; 87086; 87186 ==

== ENCOUNTER 2024-08-29 06:15 | Inpatient (IN) | payer OTHER, SELFPAY ==
[2024-08-24 07:42] VITALS: BMI 29.3
[2024-08-29] VITALS (22 sets, daily range): BP systolic 101–159; BP diastolic 52–88; PULSE 62–86; RESP 10–20; TEMP 35.7–36.7; O2SAT 92–99; BMI 33.3
--- NOTE | 2024-08-29 | PATH_ITS ---
[facility] Accession Number: [id number] No. of containers..01 Tissue . 01 Material submitted: . prostate - PROSTATE . 01 Diagnosis: PROSTATE, SIMPLE PROSTATECTOMY: Benign prostatic parenchyma (89 grams) with nodular glandular and stromal hypertrophy, and mild chronic inflammation. Benign urothelial mucosa also present. Negative for high-grade prostatic intraepithelial neoplasia and invasive malignancy. MRV 09/01/2024 1549 Local . 01 Electronically signed: . Giana Christian MD, Pathologist NPI- [id number] . 01 Gross description: . The specimen is received in formalin with two patient identifiers and prostate, and consists of an 8.5 x 5.5 x 3.2 cm, 89 gram, portion of irregular, partially shaggy, serra-white nodular prostatic tissue which is inked and serially sectioned to show a white, focally cystic, multinodular cut surface. No distinct nodules or areas of discoloration are appreciated. Gold Layer sections are submitted in cassettes A1-A6 (two sections in each cassette). ([id number]) /MRV 08/31/2024 1826 Local . 01 Pathologist provided ICD-10: N40.1 . 01 CPT . 054790 Specimen Comment: A courtesy copy of this report has been sent to [facility] Performed at: [address] [address], [place], [place] [id number] MD Manny Huertas MD Phone: [phone]
[2024-08-29] MEDS: LACTATED RINGERS 1,000 ML 42 ML IV ×4 (06:43→13:29)
[2024-08-29] MEDS: PREGABALIN 75 MG CAPSULE PO (06:55)
[2024-08-29] MEDS: ACETAMINOPHEN 325 MG TABLET 975 MG PO (06:55)
[2024-08-29] MEDS: FAMOTIDINE 20 MG/2 ML VIAL IV (06:55)
--- NOTE | 2024-08-29 07:20 | PM.PREOP ---
Pre-operative Note COVID-19 COVID-19 status: Not tested Interval Note History & Physical reviewed/Exam performed by Physician: Yes Changes to H&P: No H&P completed within 30 days and has changed as indicated here:: Discussed the risk of possible conversion to open.
[2024-08-29] MEDS: CELECOXIB 200 MG CAPSULE PO (07:21)
[2024-08-29] MEDS: CEFAZOLIN 2 GM/100 ML PREMIX 100 ML IV (07:55)
--- NOTE | 2024-08-29 09:13 | SUR.OPER ---
Supine on padded OR bed, with pink pad, head on pillow, arms padded and tucked at sides, legs uncrossed, safety belt at thigh, tape over blanket over lower legs .
[2024-08-29] MEDS: LIDOCAINE 1% 20 ML INJ (09:19)
[2024-08-29] MEDS: BUPIVACAINE 0.25% W/ EPI 30 ML VIAL INJ (09:20)
--- NOTE | 2024-08-29 13:23 | P.OP_ITS ---
Operative Date/Time/Diagnoses Date of procedure: 08/29/24 Pre-op diagnosis: Benign prostatic hyperplasia with lower urinary tract symptoms Post-op diagnosis: same Procedure & Clinicians Procedure: Robotic simple prostatectomy Same procedure as scheduled: Yes Indications: 79 y/o M noted to have symptoms consistent w/ BPH and LUTS in the setting of acute urinary retention in [place] that has been managed chronically w/ an indwelling ferro catheter for the last few months. After a lengthy preoperative discussion, he opted for management via a robotic assisted laparoscopic simple prostatectomy. Surgeon: Demetrio Floyd Click Yes if Unassisted: Yes Anesthesia Type: General Operative Notes Findings: Large intravesical median lobe Closure Type: primary Specimen(s): other (prostate adenoma) Applied: catheter Estimated Blood Loss (mL): 400 Blood products transfused: none Procedure in detail: After administration of general anesthetic, this patient was placed in an extended dorsal lithotomy position. The lower abdomen and genitalia were shaved, prepped, and draped in a sterile fashion. A 16 fr Ferro catheter was then passed per urethra in to the bladder and secured in the proper location by inflating the Ferro balloon. A small curvilinear incision was made immediately superior to the umbilicus, we then grasped the skin edges to elevate the abdominal wall and we established a pneumoperitoneum with a Veress needle. An 8 mm trocar was then placed. The abdomen was then inspected and free of injury from the trochar placement. Under direct vision, we placed 2 additional trocars on both sides; the far-left lateral port being a 12 mm port for the furniture removalist's assistant, and the remainder being 8 mm da Daxa ports. The ports were then connected to the [email or web address] surgical system. A Anthony-Shabbir device was utilized for fascial closure of the aforementioned 12 mm furniture removalist's assistant port. A total of 60 cc's of local anesthetic was utilized throughout the case. The bladder was then identified by distending the bladder via the ferro with 240 cc of sterile water. A vertical midline incision was made in the bladder. Stay sutures were then utilized to keep the bladder open via 0-Vicryl sutures and large weck clips. Bilateral ureteral orifices were easily identified and noted to be orthotopic in nature. The adenoma was easily visualized as a large intravesical median lobe. Stay sutures of 0 Ethibond were then placed into the adenoma and utilized for retraction throughout the case. The bladder mucosa was then scored circumferentially around the adenoma and adenoma was excised intact. Hemostasis was obtained within the prostatic fossa via 4-0 Vicryl sutures in a figure of 8 fashion. Hemostasis was evaluated and noted to be excellent. A 24Fr Tacos 3-way hematuria catheter was then placed into the bladder and the balloon was inflated under direct vision, a total of 45 cc of sterile water was utilized for balloon insufflation. The cystotomy was then closed in two layers using 3-0 Vicryl in a running fashion and tied in the middle. A leak test was then performed with 240 cc of sterile water and noted to be negative. The prostatic adenoma was then placed into the lap sac. The robot was undocked and the midline incision was then extended to allow for extraction of the specimen. The midline fascial incision was then closed transversely using figure-of- eight sutures of 0 Vicryl. All skin incisions were then closed using running 4-0 Monocryl. All five incisions were then covered with Dermabond. The patient was then awakened and taken to the PACU in stable condition for recovery. Complications: none Post-operative Condition: stable Disposition: Acute Care Plan for aftercare: Will continue to run CBI for now with likely discharge home with catheter in place in 1-2 days.
[2024-08-29] MEDS: OXYBUTYNIN 5 MG TABLET PO ×2 (18:50→21:42)
[2024-08-29] MEDS: TRAMADOL 50 MG TABLET PO (18:53)
[2024-08-29] MEDS: ACETAMINOPHEN 325 MG TABLET 650 MG PO (21:42)
[2024-08-30] VITALS: BP 125/66; PULSE 55; RESP 20; TEMP 36.4; O2SAT 98
[2024-08-30 04:00] VITALS: BP 146/86; PULSE 53; RESP 20; TEMP 36.3; O2SAT 97
[2024-08-30 05:12] LABS: Add Manual Diff / Slide Review NO; Basophils Absolute Auto 100 /uL (0-100); Basophils Percent Auto 0.6 % (0-2); Eosinophils Absolute Auto 0 /uL (0-450); Eosinophils Percent Auto 0.3 % (2-4); Hematocrit 40.2 % (41-53); Hemoglobin 13.8 g/dL (13.5-17.5); Lymphocytes Absolute Auto 1600 /uL (1100-4500); Lymphocytes Percent Auto 12.8 % (25-40); Mean Corpuscular HGB Conc 34.4 % (30-36); Mean Corpuscular Hemoglobin 30.9 PG (26-34); Mean Corpuscular Volume 89.8 fL (80-100); Monocytes Absolute Auto 1400 /uL (0-900); Monocytes Percent Auto 11.6 % (3-14); Neutrophils Absolute Auto 9100 /uL (1500-7000); Neutrophils Percent Auto 74.7 % (50-75); Platelet Count 145 X10^3/uL (150-400); Red Blood Cell Count 4.48 X10^6/uL (4.5-5.9); White Blood Cell Count 12.2 X10^3/uL (4.5-11.0)
[2024-08-30] MEDS: TRAMADOL 50 MG TABLET PO (06:00)
--- NOTE | 2024-08-30 07:56 | PM.PNPO.1 ---
Subjective Subjective Date Patient Seen: 08/30/24 Time Patient Seen: 07:56 Interval history: 79 y/o M noted to have BPH and LUTS in the setting of chronic urinary retention who is now POD 1 s/p a robotic assisted laparoscopic simple prostatectomy. He tolerated the aforementioned procedure without any complications and had an uneventful evening in the hospital. He is tolerating a clear liquid diet without any nausea or vomiting and his pain remains well controlled. His CBI continues to run at a moderate drip with clear efflux. Exam Vital Signs (past 8 hours): - 08/30/24 00:00 08/30/24 04:00 Temperature 97.5 F L 97.4 F L Pulse Rate 55 L 53 L Respiratory Rate 20 20 Blood Pressure 125/66 146/86 H Pulse Oximetry 98 97 Oxygen Flow Rate 2 2 Oxygen Delivery Method Nasal Cannula Oxygen Flow Rate 2 Narrative Exam Narrative: GEN: Alert and oriented X3. No acute distress. Well-nourished. EYES: PERRLA, EOMI. HENT: Moist mucus membranes, no scleral icterus, normal neck ROM. RESP: Unlabored breathing, equal rise and fall of chest bilaterally, no cyanosis appreciated. CV: No peripheral edema, unremarkable heart rate. ABD: Soft, mildly distended, appropriately tender to palpation, incisions covered with dermabond, no guarding/rebound/rigidity. : Enriquez catheter secured and draining clear yellow urine on moderate drip of CBI. EXT: No edema, clubbing or cyanosis. SKIN: No rashes or lesions. NEURO: No focal neurologic deficits, CN II-XII grossly intact. PSYCH: Cooperative, appropriate mood and affect. Objective Labs 08/30/24 04:43 Labs: Laboratory Results - last 24 hr 08/30/24 04:43 WBC 12.2 H RBC 4.48 L Hgb 13.8 Hct 40.2 L MCV 89.8 MCH 30.9 MCHC 34.4 RDW 14.0 Plt Count 145 L Neut % (Auto) 74.7 Lymph % (Auto) 12.8 L [place] % (Auto) 11.6 Eos % (Auto) 0.3 L Baso % (Auto) 0.6 Neut # (Auto) 9100 H Lymph # (Auto) 1600 [place] # (Auto) 1400 H Eos # (Auto) 0 Baso # (Auto) 100 PFSH Medical History Hypertension Oral cancer Surgical History Hx of tonsillectomy Hx of oral surgery S/P right rotator cuff repair Status post right knee replacement Family History Mother Cancer Grandfather Diabetes mellitus Social History marital status: number of children: 2 household members: spouse Smoking Status: Former smoker alcohol intake: former caffeine: Yes Type(s) of exercise: regular exercise frequency: decline to answer Assessment & Plan Post-op Assessment and plan (1) BPH loc w urin obs/LUTS: Assessment and Plan narrative: 79 y/o M noted to have BPH and LUTS in the setting of chronic urinary retention who is now POD 1 s/p a robotic assisted laparoscopic simple prostatectomy. He is recovering as expected. - Will continue to hydrate well - Will decrease CBI to moderate drip and readjust later today - Will advance to regular diet - Stressed importance of 3-4 laps in the hallway 2-3 times per day - Likely discharge home tomorrow afternoon Postoperative Procedures: Procedures Operation Date: 08/29/24 07:45 Actual Procedure Side Surgeon p Robot Assisted simple prostatectomy Demetrio Floyd DO Time Spent With Patient Time with patient: 15-24 minutes Quality VTE Deep Vein Thrombosis/Pulmonary Embolism Present on Admission: No
[2024-08-30 08:11] VITALS: BP 162/107; PULSE 64; RESP 15; TEMP 36.8; O2SAT 97
[2024-08-30 08:30] VITALS: BP 162/107
[2024-08-30] MEDS: CHOLECALCIFEROL (VITAMIN D3) 400 UNIT TABLET PO (08:30)
[2024-08-30] MEDS: METOPROLOL ER 25 MG TABLET 50 MG PO (08:30)
[2024-08-30] MEDS: MULTIVITAMIN 1 TABLET 1 TAB PO (08:31)
[2024-08-30] MEDS: OXYBUTYNIN 5 MG TABLET PO ×3 (08:31→21:03)
[2024-08-30 09:43] VITALS: O2SAT 95
[2024-08-30] MEDS: TRAMADOL 50 MG TABLET 100 MG PO ×2 (14:12→21:02)
[2024-08-30 20:00] VITALS: BP 161/82; PULSE 60; RESP 20; TEMP 36.8; O2SAT 95
[2024-08-31] MEDS: ACETAMINOPHEN 325 MG TABLET 650 MG PO (01:52)
--- NOTE | 2024-08-31 07:47 | CM.DANOTE ---
Initial DCP Assessment Visit Note Reviewed EMR and team rounds for status updates. Met with pt at bedside to introduce self and role, pt was found to be alert/oriented, able to share his plan for d/c home w/spouse transporting. Pt lives independently with his spouse in their own home here in [place]. Plan is d/c today back home, f/u with Urology OP for postoperative f/u. Pt denies any CM d/c assistance or resource needs at this time. Payor: June Briggs Attending: Dr. Floyd Pt is a 79 year-old M post-op day 2 from a robot assist prostatectomy. He cavanaugh a hx of chronic urinary retention, did well postoperatively with no complications, pain is well controlled. Pt advanced his diet to solids yesterday. Anticipate home d/c later this am. Discharge Planning/Care Management Advanced directive, confirm from FAMILY Start: 08/29/24 15:15 Freq: Q24H Status: Active Protocol: Document 08/29/24 15:15 JJ (Rec: 08/29/24 17:21 JJ Desktop) Advance Directive, confirm on record Time 17:21 Person contacted Pt Copy received No Document 08/30/24 15:15 SB (Rec: 08/30/24 16:54 SB [id number]) Advance Directive, confirm on record Time 17:21 Person contacted Pt Copy received No Time 16:54 Person contacted patient Copy received No CM Discharge Assessment Start: 08/31/24 07:45 Freq: Status: Active Protocol: Document 08/31/24 07:45 DPL (Rec: 08/31/24 07:46 DPL [id number]) Discharge Planning Assessment Assigned Ambulatory Technologist RACHNA García Advance Directives? Yes Advance Directives on File No History Provided By Patient,Medical Record Has Patient been admitted in last 30 No days? Prior Living Arrangements House Household Members spouse Type of transporation used prior to Drives own vehicle admit Independent with ADL's Yes Is patient alert and oriented? Yes Comment N/A Caregiver for Another No Comment N/A, does not use an AD at baseline. Comment OP Urology f/u Barriers to Discharge No Transportation Arrangement Spouse Referrals Initiated None needed Whiteboard Updated in Patient Room with Yes name and ext. # of Ambulatory Technologist Review Status In Process Please Provide Date Initial DC 08/31/24 Assessment Was Performed Pre-Anesthesia Assessment Start: 08/24/24 07:42 Freq: Status: Active Protocol: Document 08/24/24 07:42 LB (Rec: 08/24/24 07:52 LB [id number]) Pre-Anesthesia Assessment PAC Comment 08/24/24 Phone assessment. Pt wear brief as catheter leaks. Preferred Name Gio Patient Information Reviewed Via Phone Assessment Assessment Completed With Patient Diagnostic Results Urinalysis Comment 08/09/24 at . Primary Care Provider Shaun Martinez Seen Specialist in Last 12 Months Yes Specialist Seen Emergency,Urologist Primary Language Malaysian Preferred Language Malaysian Activities Specialist Required No Height 175.26 cm Weight 90.265 kg Body Mass Index (BMI) 29.3 Hearing Ability Normal Visual Impairment No Limitations Visual Assist None Dentition Type Teeth, Missing Barriers to Learning None Other Aids No Hx Anesthesia Reactions No: Can not open mouth wide. Hx Family Anesthesia Reaction No Hx Malignant Hyperthermia No Hx Blood Transfusions No Anesthesia Review Requested No Mercury Washer No alcohol intake former Smoking Status Former smoker how long ago did patient quit smoking Quit 1969. Substance Use Type [#R] does not use Pain Present Denied Pain Patient is completely paralyzed or No completely immobile Mental Status Oriented to own ability Is patient on oxygen? No Does patient have IGLESIAS/SOB No Hx Sleep Apnea No Currently Taking a Beta Wili Yes: Metoprolol 50mg daily. Can You Climb a Flight of Stairs Without Yes SOB Hx Chest Pain No Hx SOB No Hx Syncope or Dizziness No Anti-Coagulant Therapy No Has a Membership Sales Manager No Cardiac Testing No Hx Pacemaker/ICD No Cardiac Clearance Received Not Applicable Dysphagia Yes: With dry chicken. Gastrointestinal Symptoms Chewing Difficulty,Reflux Chronic UTI No Urinary Catheter Present Yes: 18F coude with 10ml sterile water. Comment Catheter leaks. Diabetes No Hx Drug Resistant Organism No Presence of External or Internal Medical Yes: urinary catheter. Devices Have you had any close contact with No someone diagnosed with COVID-19? Are you experiencing any of these No symptoms symptoms? Comment Denies covid last 8 weeks. Marital Status Lives With spouse Current Living Arrangements House Number of Stairs To Enter/Railing? 2 steps to enter with handles. 13 stairs with railing. Support System Spouse Does the Patient Have Assistance After Yes Surgery Patient Discharge Plan Description Return Home Comment Advised overnight LOS. Feels Safe in Current Environment Yes Emergency Contact Name Narda Abdalla - Emergency Contact - home Advance Directives? Yes Advance Directives on File No Requested Patient Bring Advanced Yes Directives DOS PAC Instructions Assistance for 24 hours post- op,Do not shave/clip surgical site,Medications to take/avoid ,No ETOH/petroleum product on skin DOS,NPO,Post-op transportation,Pre-surgical wash,Sturdy shoes/comfortable clothes,Do not bring valuables and remove jewelry
[2024-08-31 08:46] LABS: Add Manual Diff / Slide Review NO; Basophils Absolute Auto 0 /uL (0-100); Basophils Percent Auto 0.3 % (0-2); Eosinophils Absolute Auto 200 /uL (0-450); Eosinophils Percent Auto 2.1 % (2-4); Hematocrit 46.2 % (41-53); Hemoglobin 15.4 g/dL (13.5-17.5); Lymphocytes Absolute Auto 1800 /uL (1100-4500); Lymphocytes Percent Auto 17.7 % (25-40); Mean Corpuscular HGB Conc 33.2 % (30-36); Mean Corpuscular Hemoglobin 30.4 PG (26-34); Mean Corpuscular Volume 91.4 fL (80-100); Monocytes Absolute Auto 1100 /uL (0-900); Monocytes Percent Auto 10.4 % (3-14); Neutrophils Absolute Auto 7200 /uL (1500-7000); Neutrophils Percent Auto 69.5 % (50-75); Platelet Count 163 X10^3/uL (150-400); Red Blood Cell Count 5.06 X10^6/uL (4.5-5.9); Red Cell Distribution Width 14.5 % (11.6-14.8); White Blood Cell Count 10.4 X10^3/uL (4.5-11.0)
[2024-08-31] MEDS: TRAMADOL 50 MG TABLET 100 MG PO (08:57)
[2024-08-31] MEDS: MULTIVITAMIN 1 TABLET 1 TAB PO (08:57)
[2024-08-31] MEDS: METOPROLOL ER 25 MG TABLET 50 MG PO (08:57)
[2024-08-31] MEDS: OXYBUTYNIN 5 MG TABLET PO (08:57)
[2024-08-31] MEDS: CHOLECALCIFEROL (VITAMIN D3) 400 UNIT TABLET PO (09:00)
[2024-08-31 09:04] LABS: BUN Creatinine Ratio 15.6 (6-22); Blood Urea Nitrogen 15 mg/dL (9-20); Calcium 9.4 mg/dL (8.4-10.2); Carbon Dioxide 31 mmol/L (22-32); Chloride 101 mmol/L (98-107); Estimated Glomerular Filt Rate > 60 mL/min (>60); Glucose 127 mg/dL (70-99); HEMOLYSIS < 15 (0-50); Potassium 4.3 mmol/L (3.4-5.1); Sodium 138 mmol/L (137-145)
--- NOTE | 2024-08-31 09:14 | PM.PNPO.1 ---
Subjective Subjective Date Patient Seen: 08/31/24 Time Patient Seen: 08:00 Interval history: 79 y/o M noted to have BPH and LUTS in the setting of chronic urinary retention who is now POD 2 s/p a robotic assisted laparoscopic simple prostatectomy. He tolerated the aforementioned procedure without any complications and had an uneventful evening in the hospital. He is tolerating a regular diet without any nausea or vomiting and his pain remains well controlled. His CBI continues to run at a low drip and remains clear. He has ambulated extensively in the hallways without issues. Exam Vital Signs (past 8 hours): Oxygen Delivery Method Room Air Oxygen Flow Rate 0 Narrative Exam Narrative: GEN: Alert and oriented X3. No acute distress. Well-nourished. EYES: PERRLA, EOMI. HENT: Moist mucus membranes, no scleral icterus, normal neck ROM. RESP: Unlabored breathing, equal rise and fall of chest bilaterally, no cyanosis appreciated. CV: No peripheral edema, unremarkable heart rate. ABD: Soft, mildly distended, appropriately tender to palpation, incisions covered with dermabond, no guarding/rebound/rigidity. : Enriquez catheter secured and draining clear yellow urine on moderate drip of CBI. EXT: No edema, clubbing or cyanosis. SKIN: No rashes or lesions. NEURO: No focal neurologic deficits, CN II-XII grossly intact. PSYCH: Cooperative, appropriate mood and affect. Objective Labs 08/31/24 08:36 08/31/24 08:36 Labs: Laboratory Results - last 24 hr 08/31/24 08:36 WBC 10.4 RBC 5.06 Hgb 15.4 Hct 46.2 MCV 91.4 MCH 30.4 MCHC 33.2 RDW 14.5 Plt Count 163 Neut % (Auto) 69.5 Lymph % (Auto) 17.7 L [place] % (Auto) 10.4 Eos % (Auto) 2.1 Baso % (Auto) 0.3 Neut # (Auto) 7200 H Lymph # (Auto) 1800 [place] # (Auto) 1100 H Eos # (Auto) 200 Baso # (Auto) 0 Estimated GFR > 60 PFSH Medical History Hypertension Oral cancer Surgical History Hx of tonsillectomy Hx of oral surgery S/P right rotator cuff repair Status post right knee replacement Family History Mother Cancer Grandfather Diabetes mellitus Social History marital status: number of children: 2 household members: spouse Smoking Status: Former smoker alcohol intake: former caffeine: Yes Type(s) of exercise: regular exercise frequency: decline to answer Assessment & Plan Post-op Assessment and plan (1) BPH loc w urin obs/LUTS: Assessment and Plan narrative: 79 y/o M noted to have BPH and LUTS in the setting of chronic urinary retention who is now POD 2 s/p a robotic assisted laparoscopic simple prostatectomy. He is recovering as expected. - Will continue to hydrate well - CBI clamped this morning, will evaluate at lunch - Continue regular diet - Stressed importance of 3-4 laps in the hallway 2-3 times per day - Likely discharge home this afternoon. Postoperative Procedures: Procedures Operation Date: 08/29/24 07:45 Actual Procedure Side Surgeon p Robot Assisted simple prostatectomy Demetrio Floyd DO Time Spent With Patient Time with patient: 15-24 minutes Quality VTE Deep Vein Thrombosis/Pulmonary Embolism Present on Admission: No
[2024-08-31 09:53] VITALS: BP 123/75; PULSE 71; RESP 16; TEMP 36.6; O2SAT 95
[2024-08-31] MEDS: TRAMADOL 50 MG TABLET PO (13:21)
--- NOTE | 2024-08-31 14:45 | PC.NURSE ---
Day shift: Discharge instructions gone over with patient and patient's . Offered hands-on teaching for Enriquez catheter and for post-op care, patient declined. Given paperwork anyways for him to review at home. PIV removed prior to discharge. All belongings with patient. DONNA Pena escorted patient to exit via wheelchair.
== END 2024-08-31 13:45 | disposition home or self-care (01) | DRG 718 ==
PROVIDERS: Admitting Provider Urology; PCP Family Medicine; Referring Provider Urology; Visit Provider Urology
PROC: 0VT04ZZ Resection of Prostate, Percutaneous Endoscopic Approach (ICD-10-PCS; CPT 55867; principal; 2024-08-29 07:45)
DX: N40.1 Benign prostatic hyperplasia with lower urinary tract symptoms (principal); R33.8 Other retention of urine; I10 Essential (primary) hypertension; Z85.819 Personal history of malignant neoplasm of unspecified site of lip, oral cavity, and pharynx; Z87.891 Personal history of nicotine dependence; Z88.3 Allergy status to other anti-infective agents; Z88.5 Allergy status to narcotic agent; Z80.42 Family history of malignant neoplasm of prostate; Z80.9 Family history of malignant neoplasm, unspecified
CPT/HCPCS: 36415; 55821; 80048; 85025; 94760; 94762; J0690; J1100; J1171; J1885; J2405; J2704; J3010; J3490

== ENCOUNTER → 2024-09-13 06:48 | Outpatient (CLI) | payer OTHER, SELFPAY ==
[2024-08-29 06:42] VITALS: BMI 33.3
--- NOTE | 2024-09-13 06:49 | DI.CT.S_ITS ---
PROCEDURE: CT CYSTOGRAM INDICATIONS: 79 y/o M s/p simple prostatectomy, eval bladder repair TECHNIQUE: Both before and after gravity instillation of 10% Isovue contrast solution into the bladder through a Enriquez catheter, 5 mm axial images acquired from the bladder dome to the symphysis. 5 mm thick coronal and sagittal reformats were acquired. For radiation dose reduction, the following was used: automated exposure control, adjustment of mA and/or kV according to patient size. COMPARISON: None. FINDINGS: Image quality: Diagnostic. Bladder: Enriquez catheter in place. After contrast administration, the bladder distends with contrast. There appears to be contrast within the wall at the base of the urinary bladder (series 5, image 59) near the prostatectomy site. Urinary bladder wall thickening is present with surrounding fat stranding. No extra vesicular contrast is seen. Distal Ureters: No abnormal distension. PELVIS: Peritoneum and Bowel: Bowel loops demonstrate normal wall thickness and caliber. No free fluid or air. Diverticulosis without evidence of acute diverticulitis in the visualized bowel. Pelvic Organs: No pelvic mass. Pelvic Nodes: No enlarged lymph nodes. Miscellaneous: Small bilateral fat containing inguinal hernias. Bones: No aggressive osseous abnormality. Degenerative changes of the visualized lower lumbar spine. IMPRESSION: Status post prostatectomy. Urinary bladder wall appears thickened with surrounding fat stranding which may be postsurgical in etiology. After the injection of contrast, contrast is seen possibly within the urinary bladder wall near the base of the urinary bladder. No extra vesicular contrast is seen. Dictated by: Burt Antonio M.D. on 09/13/2024 at 8:49 Approved by: Burt Antonio M.D. on 09/13/2024 at 8:57
== END ==
PROVIDERS: PCP Family Medicine; Referring Provider Urology; Visit Provider Urology
DX: N40.1 Benign prostatic hyperplasia with lower urinary tract symptoms (principal); K57.90 Diverticulosis of intestine, part unspecified, without perforation or abscess without bleeding; K40.20 Bilateral inguinal hernia, without obstruction or gangrene, not specified as recurrent
CPT/HCPCS: 72194; Q9958

== ENCOUNTER → 2024-09-14 14:33 | Outpatient (CLI) | payer OTHER, SELFPAY ==
[2024-09-13 13:57] VITALS: BMI 33.3
== END ==
PROVIDERS: PCP Family Medicine; Visit Provider Urology
DX: N40.1 Benign prostatic hyperplasia with lower urinary tract symptoms (principal); R33.9 Retention of urine, unspecified
CPT/HCPCS: 87086

== ENCOUNTER → 2024-11-16 08:06 | Outpatient (CLI) | payer OTHER, SELFPAY ==
[2024-09-13 13:57] VITALS: BMI 33.3
== END ==
PROVIDERS: PCP Family Medicine; Visit Provider Urology
DX: N40.1 Benign prostatic hyperplasia with lower urinary tract symptoms (principal); R33.9 Retention of urine, unspecified; Z12.5 Encounter for screening for malignant neoplasm of prostate
CPT/HCPCS: 51798; 81002; 87077; 87086; 87186

== ENCOUNTER → 2025-01-17 07:53 | Outpatient (CLI) | payer OTHER, SELFPAY ==
[2024-09-13 13:57] VITALS: BMI 33.3
== END ==
PROVIDERS: PCP Family Medicine; Visit Provider Urology
DX: N40.1 Benign prostatic hyperplasia with lower urinary tract symptoms (principal)
CPT/HCPCS: 87086